=== PATIENT | female | born 1970 | race Caucasian/White ===

== ENCOUNTER 2022-03-22 02:05 | Emergency (ER) | payer OTHER ==
[~2022-03-22] VITALS: Ht 165.1 cm; Wt 63.5 kg
== END 2022-03-22 05:05 ==
LOC: ER 02:05 → EDBD 02:05 → ER 05:05
DX: I46.9 Cardiac arrest, cause unspecified (principal)
CPT/HCPCS: 31500; 94002; J0461; J2310